=== PATIENT | female | born 1955 | race Caucasian/White ===

== ENCOUNTER 2022-01-10 06:30 | Day surgery (SDC) | payer MEDICARE, OTHER ==
[2022-01-10] MEDS ORDERED: Lactated Ringers 1,000 ML IV SCH (07:15)
[2022-01-10] MEDS ORDERED: fentaNYL 100 MCG/2 ML SDV ONE (07:20)
[2022-01-10] MEDS ORDERED: Propofol 200 MG/20 ML SDV ONE (07:20)
[2022-01-10] MEDS ORDERED: Midazolam 1 MG/ML 2 ML SDV ONE (07:20)
[2022-01-10 09:09] VITALS: BP 104/69; PULSE 72
== END 2022-01-10 09:20 | disposition home or self-care (01) ==
LOC: JP.SDS 06:30
PROVIDERS: ATTEND Surgery
DX: K21.00 Gastro-esophageal reflux disease with esophagitis, without bleeding (principal); I10 Essential (primary) hypertension; E66.9 Obesity, unspecified; Z68.35 Body mass index [BMI] 35.0-35.9, adult
CPT/HCPCS: 43239; 88305; J2250; J2704; J3010; J7120

== ENCOUNTER 2024-06-25 07:59 | Day surgery (SDC) | payer MEDICARE ==
[2024-06-25] MEDS ORDERED: Propofol 200 MG/20 ML SDV ONE (08:03)
[2024-06-25] MEDS ORDERED: fentaNYL 50 MCG/ML SDV ONE (08:03)
[2024-06-25] MEDS: Lactated Ringers 1,000 ML IV SCH (08:18)
[2024-06-25 10:35] VITALS: PULSE 66
[2024-06-25 10:36] VITALS: BP 119/67
== END 2024-06-25 10:30 | disposition home or self-care (01) ==
LOC: JP.SDS 07:59
PROVIDERS: ATTEND Surgery
DX: R10.13 Epigastric pain (principal)
CPT/HCPCS: 00731-QZ; 88305; J2704; J3010; J7120